=== PATIENT | female | born 1980 | race Caucasian/White ===

== ENCOUNTER 2018-08-27 17:00 | Inpatient (IN) | payer OTHER ==
[2018-08-27] MEDS ORDERED: DEXTROSE 5%-LACTATED RINGERS 1,000 ML IV ONE (20:00)
[2018-08-27] MEDS ORDERED: AMPICILLIN - 2 GM in SODIUM CHLORIDE 100 ML IVPB ONE (20:15)
[2018-08-27] MEDS ORDERED: AMPICILLIN SODIUM 2 GM VIAL ONE (20:29)
[2018-08-27 20:49] LABS: BASO % 0.1 % (0-2.0); EOS % 0.1 % (0-4.5); HEMATOCRIT 37.4 % (32.4-45.2); HEMOGLOBIN 12.8 GM/dL (10.7-15.3); MCHC 34.1 g/dl (32.0-36.0); MEAN CELL VOLUME 90.9 fl (80-96); MEAN PLT VOLUME 10.7 fl (7.5-11.1); MONO % 6.6 % (3.8-10.2); NEUT % 73.2 % (42.8-82.8); PLATELET COUNT 143 K/MM3 (134-434); RBC 4.12 M/mm3 (3.60-5.2); RDW 13.3 % (11.6-15.6); WHITE BLOOD COUNT 12.7 K/mm3 (4.0-10.0)
[2018-08-27 21:02] LABS: INR 0.96 (0.83-1.09); PROTHROMBIN TIME (PATIENT) 11.3 SEC (9.7-13.0)
[2018-08-27 21:04] LABS: ACTIVATED PTT 23.3 SECONDS (25.2-36.5)
[2018-08-27 21:11] VITALS: BMI 22.8
[2018-08-27 21:22] LABS: ANION GAP 9 MMOL/L (8-16); BLOOD UREA NITROGEN 7 mg/dL (7-18); CALCIUM 8.9 mg/dL (8.5-10.1); CHLORIDE 104 mmol/L (98-107); CO2 24 mmol/L (21-32); CREATININE 0.5 mg/dL (0.55-1.3); GLUCOSE,RANDOM 84 mg/dL (74-106); POTASSIUM 3.9 mmol/L (3.5-5.1); SODIUM 137 mmol/L (136-145)
[2018-08-27 21:53] LABS: COCAINE, UR NEGATIVE ng/ml (CUTOFF=300); METHADONE, UR NEGATIVE ng/ml (CUTOFF=300); OPIATES, URI NEGATIVE ng/ml (CUTOFF=300); PHENCYCLIDINE,URINE NEGATIVE ng/ml (CUTOFF=25); URINE AMPHETAMINES NEGATIVE ng/ml (CUTOFF=500); URINE BARBITURATES NEGATIVE ng/ml (CUTOFF=200); URINE BENZODIAZEPINES NEGATIVE ng/ml (CUTOFF=200)
[2018-08-27 22:11] LABS: BASO % 0.1 % (0-2.0); HEMATOCRIT 32.5 % (32.4-45.2); HEMOGLOBIN 11.4 GM/dL (10.7-15.3); LYMPH % 17.4 % (8-40); MCH 31.6 pg (25.7-33.7); MCHC 34.9 g/dl (32.0-36.0); MEAN CELL VOLUME 90.6 fl (80-96); MEAN PLT VOLUME 10.6 fl (7.5-11.1); MONO % 5.9 % (3.8-10.2); NEUT % 76.6 % (42.8-82.8); PLATELET COUNT 128 K/MM3 (134-434); RBC 3.59 M/mm3 (3.60-5.2); RDW 13.5 % (11.6-15.6); WHITE BLOOD COUNT 9.8 K/mm3 (4.0-10.0)
[2018-08-27 22:25] VITALS: TEMP 98.7
[2018-08-27 22:37] LABS: ALBUMIN 2.5 g/dl (3.4-5.0); ALK PHOS 147 U/L (45-117); ANION GAP 6 MMOL/L (8-16); BILIRUBIN,TOTAL 0.2 mg/dL (0.2-1); BLOOD UREA NITROGEN 6 mg/dL (7-18); CHLORIDE 105 mmol/L (98-107); CO2 26 mmol/L (21-32); CREATININE 0.6 mg/dL (0.55-1.3); GLUCOSE,RANDOM 146 mg/dL (74-106); POTASSIUM 3.4 mmol/L (3.5-5.1); SGOT/AST 14 U/L (15-37); SGPT/ALT 19 U/L (13-61); SODIUM 137 mmol/L (136-145); TOT PROT 5.6 g/dl (6.4-8.2)
[2018-08-27] MEDS ORDERED: BUTORPHANOL TARTRATE 1 MG/ML VIAL IVPB ONE (23:35)
[2018-08-27] MEDS ORDERED: ELECTROLYTE-148 SOLN 1,000 ML IV SCH (23:45)
[2018-08-28] MEDS ORDERED: AMPICILLIN - 1 GM in SODIUM CHLORIDE 100 ML IVPB SCH (00:15)
[2018-08-28] MEDS ORDERED: AMPICILLIN SODIUM 1 GM VIAL ONE (00:24)
--- NOTE | 2018-08-28 00:40 | HP ---
Past Medical History - Admission Chief Complaint: Uterine contractions History of Present Illness: 38yo @ 36.0wks here with uterine contractions. No VB/LOF. +FM care at [facility]. History of one PTD History Source: Patient Limitations to Obtaining History: No Limitations - Past Medical History ...: 7 ...Para: 6 ...Term: 5 ...: 1 ...Spon : 0 ...Induced : 0 ...Multiple Gestation: 0 ...LMP: 12/11/17 ... Weeks Gestation by Dates: 37.0 ...EDC by Dates: 09/17/18 ...EDC by Sono: 09/24/18 Heme/Onc: No: Anemia, B12 Deficiency, Bleeding Disorder, Cancer, Current Chemotherapy, Current Radiation Therapy, Hemochromatosis, Hypercoaguable State, Myeloproliferative Synd, Sickle Cell Disease, Sickle Cell Trait, Thrombocytopenia, Other Infectious Disease: No: AIDS, C-Diff, Herpes Zoster, HIV, MRSA, STD's, Tuberculosis, VREF, Other Psych: No: Addictions, Anxiety, Bipolar, Depression, Panic, Psychosis, Schizophrenia, Other - Past Surgical History Hx Myomectomy: No Hx Transabdominal Cerclage: No - Smoking History Smoking history: Never smoked Have you smoked in the past 12 months: No - Alcohol/Substance Use Hx Alcohol Use: No History of Substance Use: reports: Marijuana - Social History Usual Living Arrangement: Yes: With Spouse History of Recent Travel: No Home Medications - Allergies Allergies/Adverse Reactions: Allergies Allergy/AdvReac Type Severity Reaction Status Date / Time No Known Allergies Allergy Verified 03/10/13 23:16 - Home Medications Home Medications: Ambulatory Orders Pnv No.95/Ferrous Fum/Folic AC [ Tablet] 1 each PO DAILY 03/10/13 Acetaminophen [Tylenol .Regular Strength -] 650 mg PO Q3H PRN #1 tablet Ferrous Sulfate [Feosol] 325 mg PO BID #1 ud 03/13/13 Ibuprofen [Motrin -] 600 mg PO Q4H PRN #1 tablet 03/13/13 Physical Exam - Maternity Vital Signs: Vital Signs Temperature 98.7 F 08/27/18 22:00 Pulse Rate 98 H 08/27/18 23:00 Respiratory Rate 20 08/27/18 23:00 Blood Pressure 120/82 08/27/18 23:00 O2 Sat by Pulse Oximetry (%) Constitutional: Yes: Well Nourished, No Distress, Calm Eyes: Yes: WNL, Conjunctiva Clear, EOM Intact HENT: Yes: WNL, Atraumatic, Normocephalic Neck: Yes: WNL, Supple, Trachea Midline Cardiovascular: Yes: WNL, Regular Rate and Rhythm Breast(s): Yes: WNL - Labs Lab Results: CBC, BMP 08/27/18 22:00 08/27/18 22:00 Assessment/Plan 38yo @ 36.0wks by sono here with uterine contractions Patient admitted, given IV hydration over 4 hours Comfortable with contractions No cervical guide changer last 4 hours. Thick/4/-3, head not well engaged No evidence of active labor Discussed positive Urine Drug Screen for Marijuana D/C to home, advised to return to [facility] if contractions return. Zeferino Collazo MD
[2018-08-28 00:44] VITALS: BP 107/72; PULSE 78
[2018-08-28 06:12] LABS: RPR NONREACTIVE (NONREACTIVE)
[2018-08-29 03:15] LABS: HBsAG SCREEN Negative (Negative)
== END 2018-08-28 01:01 | disposition home or self-care (01) | DRG 566 ==
LOC: JDEL 17:00 → JLDR 20:15
PROVIDERS: ADMIT Obstetrics & Gynecology; ATTEND Obstetrics & Gynecology
DX: O62.8 Other abnormalities of forces of labor (principal); O99.324 Drug use complicating childbirth; F12.10 Cannabis abuse, uncomplicated; Z3A.36 36 weeks gestation of pregnancy
CPT/HCPCS: 36415; 80048; 80053; 80307; 85025; 85610; 85730; 86593; 86762; 86850; 86900; 86901; 87340; 87389